=== PATIENT | male | born 1955 | race Caucasian/White ===

== ENCOUNTER 2017-04-03 08:16 | Outpatient (CLI) | payer OTHER ==
[~2017-04-03] VITALS: Ht 170.2 cm; Wt 87.5 kg
--- NOTE | ~2017-04-03 | CATH ---
Cardiac Diagnostic Report Demographics Patient Name JOSE Tirado Gender Male Date of 1955 Age 62 year(s) Patient Number [id number] Date of Study 04/03/2017 Visit Number [id number] Room Number G6399 [place] [id number] Ht 170.18 cm Wt 87.5 kg Referring Avelino Rhoades Primary Physician Physician MD Performing Baltazar Noel MD Secondary Physician Physician Diagnostic Baltazar Noel MD Assisting Physician Physician Interventional Physician Oil Drilling Engineer Physician Findings and Conclusions Diagnostic Findings and Conclusion Nonobstructive CAD. Routine post procedure. Diagnostic Recommendations Medical therapy. Procedure Description The patient was brought to the diagnostic cardiac catheterization-EP laboratory in the fasting, non-sedated state. Informed consent was obtained in the written and verbal form after the risks and benefits were explained. The patient had no further questions and agreed to proceed. The planned puncture-incision site(s) were shaved and prepped with ChloraPrep and draped in the usual sterile manner. Conscious sedation, supplemental oxygen, and pain control medications were delivered by a registered nurse under physician guidance. Surface ECG rhythm, blood pressure measurement, and pulse oximetry were monitored throughout the procedure. Arterial access. The access site was infiltrated with lidocaine. The vessel was entered with the Seldinger technique. A sheath was advanced into the vessel and used for catheter placement. Selective left coronary angiography. A catheter was advanced into the left coronary vessel ostium under Fluoroscopic guidance. Contrast was injected by hand. Images were obtained in multiple projections. Selective right coronary angiography. A catheter was advanced into the right coronary vessel ostium under fluoroscopic guidance. Contrast was injected by hand. Images were obtained in multiple projections. Left heart catheterization. A catheter was advanced across the aortic valve to the left ventricle under fluoroscopic guidance. Resting hemodynamics were obtained. Arterial artery hemostasis was achieved. The patient was transferred to a regular nursing floor via cart accompanied by a nurse. The patient left the laboratory in stable condition. Diagnostic Cath Status: Elective Procedure Procedure Type Diagnostic procedure:Angiography:, Coronary Angios /[facility] Indications: Positive nuclear scan. The procedure was explained in detail to the patient. Risks, complications and alternative treatments were reviewed. Written consent was obtained. Medications Reviewed with Patient prior to Procedure. Angiographic Findings Dominance: Right Cardiac Arteries and Lesion Findings LMCA: Normal (0% Stenosis).Large, normal. LAD: Medium, normal. Diagonal 1 small, okay. Diagonal 2 medium, okay. Lesion on Prox LAD: 40% stenosis . LCx: Normal (0% Stenosis).Large, normal. OM 1 small. OM 2-3 medium, normal. RCA: Normal (0% Stenosis).Dominant. Anterior takeoff. Mid plaque. PL medium normal. PDA medium, normal. Coronary Tree Procedure Data Procedure Date Date: 04/03/2017Start: 12:42 PMEnd: 12:56 PM Entry Locations - Retrograde Percutaneous access was performed through the Right Femoral artery (Primary location). A 6 Fr sheath was inserted. Hemostasis was successfully obtained using Perclose ProGlide (EyeSpot). Closure Comments: Deployed by Shama Freedman. Procedure Medications Order and Administration + + +-------+------+ !Time !Medication !Dosage !Route ! + + +-------+------04/03/2017 12:39 PM !Versed !1 mg !I.V. ! + + +-------+------+ 04/03/2017 12:53 PM !Fentanyl !25 mcg ! ! + + +-------+------+ !04/03/2017 12:40 PM !Fentanyl !25 mcg ! ! + + +-------+------+ Devices Used - A6 Fr. BS JL 4 Diag. Catheterwas used for:Left coronary angiography. - A6 Fr. BS JR 4 Diag. Catheterwas used for:Right coronary angiography. - A6 Fr. BS Angled Pigtail Diag. Catheterwas used for:LV Pressures. Fluoroscopy Time: Diagnostic: 3:54 minutes. Total: 3:54 minutes. Fluoroscopy Dose: Diagnostic: 968 mGy. Total: 968 mGy. Estimated Blood Loss: 4 ml. Medical History Allergies - Other:(Statins, Lexapro). Risk Factors The patient risk factors include:hypertension, family history of premature CAD, chronic lung disease, last creatinine: 1.2 mg/dl, creatinine clearance: 78.99 ml/min and dyslipidemia. Admission Data Admission Date: 04/03/2017 Admission Time: 08:16 AM Admit Source: Other Insurance Payors: Private health insurance. Clinical Evaluation Leading to Procedure - The patient's CAD presentation was assessed as: Unstable angina. - The patient's anginal syndrome during the past two weeks was assessed as: Class IV according to the [place] Cardiovascular Society Classification System (CCS). Hemodynamics Condition: Rest O2 Consumption: Estimated: 245.79Heart Rate: 87 bpm Pressures (mmHg) +-----+ + !Site !Pressure ! +-----+ + !AO !149/86 (116) ! +-----+ + !AO !151/82 (111) ! +-----+ + !LV !157/-12 ,11 ! +-----+ + !LV !156/-15 ,24 ! +-----+ + !AO !149/79 (112) ! +-----+ + !LV !152/-14 ,21 ! +-----+ + Valve Gradients and Areas + +---------+---------+---------+ +---------+ + !Valve !Peak !Mean !Area !Index !Flow !Source ! + +---------+---------+---------+ +---------+ + !Aortic !3 !20 ! ! ! ! ! + +---------+---------+---------+ +---------+ + !Aortic !3 !20 ! ! ! ! ! + +---------+---------+---------+ +---------+ + Shunts Oxygen Values O2 Capacity 183.6 O2 Consumption 245.79 Discharge Data Discharge Date: 04/03/2017 Hospital Status: Outpatient Signatures dtt: Bert Ledesma (cardio) dtd: 04/03/17 1242 Physician Self Edit
[~2017-04-03 08:16] MED LIST: ACIDOPHILUS1 EAC5 PO; ADVAIR 250-501 EACH INH; ALEVE PM CAPLE1 EACH PO; ALEVE220 MG PO; ASCORBIC ACID500 MG PO; CLARITIN10 MG PO; CRESTOR5 MG PO; FLEXERIL10 MG PO; FLONASE 50 MCG/16 GM NOSE; LEVOTHROID (SY50 MCG PO; MIRALAX17 GM PO; POTASSIUM99 M1 PO; PROAIR HFA8.5 GM INH; SINGULAIR10 MG PO; THERA-VITE W/ B1 TAB PO; ZESTORETIC 10-1 EACH PO
[2017-04-03 09:39] LABS: INR - (THERAPEUTIC) 0.93 (0.92-1.07); PROTIME 9.8 SECONDS (9.8-11.4)
== END 2017-04-03 16:44 | disposition disaster alternative care site (69) ==
LOC: GCAT 08:16 → GPCU 08:16 → GPOC 09:00 → GCAT 16:44
PROVIDERS: Internal Medicine Interventional Cardiology
PROC: 4A023N7 Measurement of Cardiac Sampling and Pressure, Left Heart, Percutaneous Approach (ICD-10-PCS; principal; 2017-04-03)
PROC: B216YZZ Fluoroscopy of Right and Left Heart using Other Contrast (ICD-10-PCS; 2017-04-03)
DX: I25.110 Atherosclerotic heart disease of native coronary artery with unstable angina pectoris (principal); Z79.899 Other long term (current) drug therapy
CPT/HCPCS: C1760; J1644; J2001; J2250; J3010; J7030